=== PATIENT | female | born 1995 | race Two or more races ===

== ENCOUNTER 2020-12-20 06:00 | Emergency (ER) | payer MEDICAID ==
[~2020-12-20] VITALS: Ht 152.4 cm; Wt 75.0 kg
--- NOTE | 2020-12-20 06:12 | NUR ---
Triage report given to staff nurse at [facility]. The nurse has been informed of HPI and Allergies for this patient.
[2020-12-20] MEDS ORDERED: ONDANSETRON 2MG/ML, 2ML ONE ×2 (06:29→06:56)
[2020-12-20] MEDS ORDERED: MORPHINE SULFATE 4 MG/ML, 1ML ONE ×2 (06:29→06:56)
[2020-12-20] MEDS ORDERED: ONDANSETRON 2MG/ML, 2ML IVPush ONE (06:30)
[2020-12-20] MEDS ORDERED: MORPHINE SULFATE 4 MG/ML, 1ML IVPush PRN (06:30)
[2020-12-20] MEDS ORDERED: SODIUM CHLORIDE FLUSH 10ML SYR IVF ONE (06:30)
[2020-12-20 06:35] LABS: MICROSCOPIC NOT IND
[2020-12-20 06:47] LABS: BASOPHILS % (AUTO) 0 % (0-1); EOSINOPHILS % (AUTO) 2 % (1-7); LYMPHOCYTES % (AUTO) 34 % (22-44); MEAN CORPUSCULAR HEMOGLOBIN 29.7 pg (27.0-34.8); MEAN CORPUSCULAR HGB CONC 34.2 g/dL (32.4-35.8); MEAN PLATELET VOLUME 7.9 fL (7.4-10.4); MONOCYTES % (AUTO) 7 % (2-9); NEUTROPHILS % (AUTO) 58 % (42-75); PLATELET COUNT 298 x10^3/uL (130-400); RED BLOOD COUNT 4.48 x10^6/uL (3.82-5.3); RED CELL DISTRIBUTION WIDTH 12.3 % (9.6-15.2)
--- NOTE | 2020-12-20 06:53 | NUR ---
ASSUMED CARE OF PT
[2020-12-20 06:56] LABS: ALANINE AMINOTRANSFERASE 21 U/L (12-78); ALBUMIN 3.2 g/dL (3.4-5.0); ANION GAP 8 mmol/L (5-15); CALCIUM 8.3 mg/dL (8.5-10.1); CHLORIDE 111 mmol/L (98-107); CREATININE 0.55 mg/dL (0.55-1.02)
[2020-12-20 07:00] LABS: ALKALINE PHOSPHATASE 84 U/L (45-117); BILIRUBIN,TOTAL 0.7 mg/dL (0.2-1.0); TOTAL PROTEIN 7.9 g/dL (6.4-8.2)
--- NOTE | 2020-12-20 07:20 | NUR ---
PT MEDICATED PER AUG. US BEDSIDE NOW
[2020-12-20] MEDS ORDERED: SODIUM CHLORIDE 0.9%, 500ML IVBOLUS ONE (07:30)
--- NOTE | 2020-12-20 07:52 | NUR ---
PT BOLUS STARTED, PT REPORTS NAUSEA IMPROVED AND NO PAIN AT THIS TIME. VSS, NADN. CALL LIGHT W/IN REACH.
--- NOTE | 2020-12-20 08:42 | NUR ---
PT RESTING ON GURNEY, VSS, NO PAIN. DENIED ANY NEEDS. NADN, CALL LIGHT W/IN REACH.
[2020-12-20 09:30] VITALS: BP 102/67
--- NOTE | 2020-12-20 09:52 | NUR ---
Patient given discharge instructions and they have confirmed that they understand the instructions. Patient ambulatory with steady gait.
== END 2020-12-20 10:01 | disposition home or self-care (01) ==
LOC: ED 08:09
DX: K80.20 Calculus of gallbladder without cholecystitis without obstruction (principal); K80.50 Calculus of bile duct without cholangitis or cholecystitis without obstruction; R11.2 Nausea with vomiting, unspecified; F17.200 Nicotine dependence, unspecified, uncomplicated
CPT/HCPCS: 36415; 76700; 80053; 81003; 83690; 84703; 85025; 96361; 96374; 96375; 99284; J2270; J2405; J7040

== ENCOUNTER 2021-02-16 21:41 | Emergency (ER) | payer MEDICAID ==
[~2021-02-16] VITALS: Ht 152.4 cm; Wt 74.5 kg
[2021-02-16 21:44] VITALS: BP 117/76
--- NOTE | 2021-02-16 22:25 | NUR ---
Patient given discharge instructions and they have confirmed that they understand the instructions. Patient ambulatory with steady gait. NAD, all questions answered appropriately, denies additional needs at this time. No personal belongings left in room after discharge.
== END 2021-02-16 22:26 ==
LOC: ED 22:25
DX: K02.9 Dental caries, unspecified (principal); K08.89 Other specified disorders of teeth and supporting structures
CPT/HCPCS: 99283